=== PATIENT | male | born 1985 | race American Indian/Alaskan Native ===

== ENCOUNTER 2025-07-30 18:21 | Emergency (ER) | payer OTHER ==
[~2025-07-30] VITALS: Ht 172.7 cm; Wt 72.7 kg
[2025-07-30 18:24] VITALS: TEMP 98.3
[2025-07-30 19:20] LABS: PLATELET COUNT (AUTO) 197 K/uL (150-450); RED BLOOD CELL COUNT(AUTO) 4.50 MIL/uL (4.50-5.90); RED CELL DISTRIBUTION WIDTH 13.5 % (11.5-14.5); WHITE BLOOD COUNT (AUTO) 6.5 K/uL (4.5-11.0)
[2025-07-30 19:28] LABS: CALCIUM, TOTAL 9.1 mg/dL (8.8-10.5); CREATININE 0.91 mg/dL (0.60-1.30); GLOMERULAR FILTR. RATE CALC > 60 mL/min (>60); GLUCOSE,RANDOM 93 mg/dL (70-110); SODIUM SERUM 141 mmol/L (136-145); UREA NITROGEN, BLOOD 21 mg/dL (7-18)
[2025-07-30 21:00] VITALS: BP 121/77; PULSE 59; RESP 16; O2SAT 100
== END 2025-07-30 21:50 ==
LOC: EMS 18:21
DX: M79.89 Other specified soft tissue disorders (principal); M79.672 Pain in left foot; M21.372 Foot drop, left foot; M54.32 Sciatica, left side; T40.411A Poisoning by fentanyl or fentanyl analogs, accidental (unintentional), initial encounter; Z86.718 Personal history of other venous thrombosis and embolism; Z79.01 Long term (current) use of anticoagulants; Z59.00 Homelessness unspecified
CPT/HCPCS: 80048; 85025; 85379; 85610; 93971; 99284